=== PATIENT | male | born 1970 | race Caucasian/White ===

== ENCOUNTER 2018-08-31 12:20 | Emergency (ER) | payer SELFPAY ==
[2018-08-31 12:29] VITALS: TEMP 97.9; BMI 30.4
--- NOTE | 2018-08-31 12:32 | PDOC ---
History of Present Illness - General Chief Complaint: Chest Pain Stated Complaint: LEFT ARM DISCOMFORT, CHEST TIGHTNESS Time Seen by Provider: 08/31/18 12:31 - History of Present Illness Initial Comments: 08/31/18 14:09 Chief complaint: Arm pain History of present illness: Patient states that after getting into an argument this afternoon, he developed heaviness in his chest and left arm. This lasted a minute or so and then resolved. Review of systems: Denies nausea, diaphoresis, shortness of breath, sustained chest pain, visual or focal neurologic symptoms, unsteadiness of gait. Remainder systems reviewed and found to be negative Past medical history: Healthy male without active medical or surgical problems. No history of cardiac or neurologic disease. ALLERGIC to aspirin and penicillin. Social history: Denies smoking, street drugs. Occasional social alcohol, none recently. Active and without disability Family history: Reviewed and noncontributory for early coronary artery disease, myocardial infarction, TIA/stroke, peripheral vascular disease. Physical exam: Alert and oriented well-developed well-nourished no acute distress cheerful and cooperative. Asymptomatic at present. Chest pain and arm pain have resolved. Afebrile, vital signs normal PERRLA, fundi benign, ENT clear Neck supple without bruit mass or nodes Chest clear full breath sounds bilaterally CV S1 and S2 normal without murmur rub or gallop pulses full and symmetric no JVD or edema no bruits Abdomen soft nontender without mass or organomegaly Neurological C2 to 12 intact. Strength full and symmetric. No focal sensory or motor deficits. Gait stable and unimpaired Extremities no CCE Skin clear, no rash, adequate turgor and wet mucous membranes Impression: The patient symptoms are most consistent with anxiety/ hyperventilation following the patient with an argument. Minimal risk factors for coronary artery disease. Plan: EKG and cardiac enzymes. If no sign of acute IA, follow-up with primary physician and consider cardiology referral a stress test. Return to ER if symptoms recur or other symptoms develop. Past History - Past Medical History Allergies/Adverse Reactions: Allergies Allergy/AdvReac Type Severity Reaction Status Date / Time aspirin Allergy Verified 08/31/18 12:24 Penicillins Allergy Verified 08/31/18 12:24 Home Medications: Ambulatory Orders NK [No Known Home Medication] 08/31/18 COPD: No - Suicide/Smoking/Psychosocial Hx Smoking History: Never smoked Have you smoked in the past 12 months: No Information on smoking cessation initiated: No Hx Alcohol Use: (social) *Physical Exam - Vital Signs Last Vital Signs Temp Pulse Resp BP Pulse Ox 97.9 F 65 18 131/78 99 08/31/18 12:20 08/31/18 13:40 08/31/18 13:40 08/31/18 13:40 08/31/18 13:40 ED Treatment Course - LABORATORY CBC & Chemistry Diagram: 08/31/18 12:35 08/31/18 12:35 - ADDITIONAL ORDERS Additional order review: Laboratory Results 08/31/18 08/31/18 08/31/18 12:35 12:35 12:35 PT with INR 12.4 INR 1.11 Sodium 139 Potassium 4.2 Chloride 104 Carbon Dioxide 24 Anion Gap 11 BUN 23 H Creatinine 0.7 Creat Clearance w eGFR 119.37 Random Glucose 116 H Calcium 9.1 Total Bilirubin 0.9 AST 29 ALT 50 Alkaline Phosphatase 61 Creatine Kinase 230 Creatine Kinase Index 1.7 CK-MB (CK-2) 4.1 H Troponin I < 0.03 Total Protein 7.4 Albumin 4.4 08/31/18 12:35 RBC 5.32 MCV 89.2 MCHC 32.7 RDW 12.8 MPV 8.2 Neutrophils % 61.3 Lymphocytes % 29.1 Monocytes % 7.9 Eosinophils % 1.1 Basophils % 0.6 - RADIOLOGY Radiology Studies Ordered: Category Date Time Status CHEST X-RAY PORTABLE* [RAD] Stat Radiology 08/31/18 12:32 Completed Medical Decision Making - Medical Decision Making 08/31/18 14:15 EKG is normal except for mild sinus arrhythmia and occasional PVC Troponin is negative Remainder of CBC and chemistries without significant abnormalities Chest x-ray clear. Discussed the possibility of anxiety/hyperventilation, that his examination, history, physical, labs, and EKG showed no sign of an acute heart problem, but that nothing is 100% and he should follow-up with primary physician and consider cardiology referral for further evaluation. He seems to understand and agree, and leaves fully ambulatory in no pain or other distress to follow-up as directed. *DC/Admit/Observation/Transfer Diagnosis at time of Disposition: Chest pain Qualifiers: Chest pain type: other chest pain Qualified Code(s): R07.89 - Other chest pain - Discharge Dispostion Disposition: HOME Condition at time of disposition: Stable Decision to Admit order: No - Referrals - Patient Instructions Printed Discharge Instructions: DI for Atypical Chest Pain, DI for Anxiety -- Adult, DI for Hyperventilation Additional Instructions: Rest and relaxation tonight. Return to ER if symptoms recur or additional symptoms develop.. Otherwise follow-up with primary physician 2-3 days. Emotional upset can give signs and symptoms that are identical to heart disease. Your EKG, laboratory work, and physical exam show no sign of cardiac problems. However, you should exercise caution and follow-up with primary physician, consider further evaluation by maintenance leader and/or stress test. - Post Discharge Activity
[2018-08-31 12:49] LABS: BASO % 0.6 % (0-2.0); EOS % 1.1 % (0-4.5); HEMATOCRIT 47.5 % (35.4-49); HEMOGLOBIN 15.5 GM/dl (11.7-16.9); LYMPH % 29.1 % (8-40); MCH 29.2 pg (25.7-33.7); MCHC 32.7 g/dl (32.0-35.9); MEAN CELL VOLUME 89.2 fl (80-96); MEAN PLT VOLUME 8.2 fl (7.5-11.1); MONO % 7.9 % (3.8-10.2); NEUT % 61.3 % (42.8-82.8); PLATELET COUNT 237 K/MM3 (134-434); RBC 5.32 M/mm3 (4.00-5.60); RDW 12.8 % (11.9-15.9); WHITE BLOOD COUNT 6.4 K/mm3 (4.0-10.8)
[2018-08-31 12:53] LABS: INR 1.11 (0.82-1.09); PROTHROMBIN TIME (PATIENT) 12.4 SEC (10.2-13.0)
[2018-08-31 13:03] LABS: ALBUMIN 4.4 g/dl (3.4-5.0); ALK PHOS 61 U/L (45-117); ANION GAP 11 MMOL/L (8-16); BILIRUBIN,TOTAL 0.9 mg/dl (0.2-1); BLOOD UREA NITROGEN 23 mg/dl (7-18); CALCIUM 9.1 mg/dl (8.5-10); CHLORIDE 104 mmol/L (98-107); CO2 24 mmol/L (21-32); CREATININE 0.7 mg/dl (0.55-1.3); GLUCOSE,RANDOM 116 mg/dl (74-106); POTASSIUM 4.2 mmol/L (3.5-5.1); SGOT/AST 29 U/L (15-37); SGPT/ALT 50 U/L (13-61); SODIUM 139 mmol/L (136-145); TOT PROT 7.4 g/dl (6.4-8.2)
[2018-08-31 14:01] VITALS: BP 131/78; PULSE 65
--- NOTE | 2018-09-01 11:23 | EKG ---
Test Reason : Blood Pressure : / mmHG Vent. Rate : 077 BPM Atrial Rate : 077 BPM P-R Int : 134 ms QRS Dur : 092 ms QT Int : 386 ms P-R-T Axes : 007 -12 000 degrees QTc Int : 436 ms SINUS RHYTHM WITH SINUS ARRHYTHMIA WITH OCCASIONAL PREMATURE VENTRICULAR COMPLEXES OTHERWISE NORMAL ECG NO PREVIOUS ECGS AVAILABLE Confirmed by ALYSSA SOSA, MELISA ([id number]) on 09/01/2018 11:23:08 AM Referred By: MARTINA FAYE Confirmed By:MELISA SHAH MD
== END 2018-08-31 13:50 | disposition home or self-care (01) ==
LOC: FER 12:20
DX: R07.89 Other chest pain (principal)
CPT/HCPCS: 36415; 71045-TC-FY; 80053; 82550; 82553; 84484; 85025; 85610; 93005; 99285-25